=== PATIENT | male | born 1955 | race Caucasian/White ===

== ENCOUNTER 2021-11-05 08:38 | Outpatient (RCR) | payer MEDICARE | END 2021-11-16 | LOC: PT 08:38 | PROVIDERS: ATTEND Podiatrist Foot Surgery | DX: M79.671 Pain in right foot (principal); M79.672 Pain in left foot ==

== ENCOUNTER → 2023-10-30 | Outpatient (REF) | payer MEDICARE | LOC: CT 07:33 | PROVIDERS: ATTEND Urology | DX: N20.0 Calculus of kidney (principal) | CPT/HCPCS: 74176 ==

== ENCOUNTER → 2024-12-06 | Outpatient (REF) | payer MEDICARE | LOC: CT 08:06 | PROVIDERS: ATTEND Urology | DX: N20.0 Calculus of kidney (principal) | CPT/HCPCS: 74176 ==